=== PATIENT | female | born 1975 | race Asian ===

== ENCOUNTER → 2024-01-05 | Day surgery (SDC) | payer OTHER ==
[~2024-01-05] MED LIST: AMLODIPINE BESYL5 MG PO; FENTANYL CITRATE/PF 100MCG/2 ML INJ ONE; LOSARTAN POTASS25 MG PO; MULTI-VITAMIN1 EACH PO; PROPOFOL IV EMULSION 50 ML IV ONE
[2024-01-05] MEDS: LACTATED RINGER'S 1,000 ML ONE (11:07)
[2024-01-05 13:04] VITALS: TEMP 97.3
[2024-01-05 13:35] VITALS: BP 140/88; PULSE 58; RESP 16; O2SAT 100
== END | disposition home or self-care (01) ==
LOC: OR 10:19
PROVIDERS: ATTEND Internal Medicine Gastroenterology
DX: Z12.11 Encounter for screening for malignant neoplasm of colon (principal); K64.8 Other hemorrhoids; I10 Essential (primary) hypertension; Z01.810 Encounter for preprocedural cardiovascular examination; Z79.899 Other long term (current) drug therapy; Z87.440 Personal history of urinary (tract) infections
CPT/HCPCS: 45378; 81025; 93005; J2704; J3010; J7121